=== PATIENT | female | born 2005 | race Two or more races ===

== ENCOUNTER 2024-02-16 23:14 | Emergency (ER) | payer SELFPAY ==
[~2024-02-16] VITALS: Ht 172.7 cm; Wt 65.8 kg
[2024-02-16 23:45] LABS: BASOPHILS % (AUTO) 0.8 % (0.0-2.0); EOSINOPHILS # (AUTO) 0.1 K/uL (0.0-0.7); EOSINOPHILS % (AUTO) 1.3 % (0.0-7.0); HEMATOCRIT 32.3 % (31.2-41.9); HEMOGLOBIN 10.4 g/dL (10.9-14.3); LYMPHOCYTES # (AUTO) 0.6 K/uL (0.8-4.8); LYMPHOCYTES % (AUTO) 11.2 % (20.5-51.5); MEAN CORPUSCULAR HEMOGLOBIN 20.7 uug (24.7-32.8); MEAN CORPUSCULAR HGB CONC 32 g/dL (32.3-35.6); MEAN CORPUSCULAR VOLUME 64.2 fL (75.5-95.3); MONOCYTES # (AUTO) 0.2 K/uL (0.1-1.30); MONOCYTES % (AUTO) 3.7 % (0.0-11.0); NEUTROPHILS # (AUTO) 4.6 K/uL (1.8-8.9); PLATELET COUNT (AUTO) 304 K/uL (179-408); RED BLOOD CELL COUNT(AUTO) 5.03 MIL/uL (3.63-4.92); RED CELL DISTRIBUTION WIDTH 16.6 % (12.3-17.7); WHITE BLOOD COUNT (AUTO) 5.5 K/uL (3.8-11.8)
[2024-02-17 00:04] LABS: ALANINE AMINOTRANSFERASE 15 U/L (14-59); ALBUMIN 4.3 g/dL (3.4-5.0); ALKALINE PHOSPHATASE 70 U/L (50-136); ASPARTATE AMINOTRANSFERASE 36 U/L (15-37); BILIRUBIN,DIRECT 0.2 mg/dL (0.0-0.2); BILIRUBIN,TOTAL 1.2 mg/dL (0.2-1.0); CARBON DIOXIDE 23 mmol/L (21-32); CHLORIDE 108 mmol/L (98-107); CREATININE 0.5 mg/dL (0.6-1.3); GLUCOSE 119 mg/dL (74-106); POTASSIUM 4.3 mmol/L (3.5-5.1); SODIUM SERUM 142 mmol/L (136-145); TOTAL PROTEIN, SERUM 8.1 g/dL (6.4-8.2); UREA NITROGEN, BLOOD 8 mg/dL (7-18)
[2024-02-17 00:07] LABS: AMMONIA 39 umol/L (11-32)
[2024-02-17 00:14] LABS: ACETAMINOPHEN < 10.0 ug/mL (10-30)
[2024-02-17 00:17] LABS: ETHANOL < 3 MG/DL (0-10)
[2024-02-17 00:27] LABS: *BILIRUBIN,URIN NEGATIVE (NEGATIVE); *CLARITY,URINE CLEAR (CLEAR); *COLOR,URINE YELLOW (YELLOW); *KETONES,URINE NEGATIVE (NEGATIVE); *PROTEIN,URINE TRACE (NEGATIVE); LEUKOCYTE ESTERASE ,URINE NEGATIVE (NEGATIVE); NITRITE, URINE NEGATIVE (NEGATIVE); UGLUCOSE NEGATIVE (NEGATIVE)
[2024-02-17 00:50] LABS: *BLOOD, URINE TRACE (NEGATIVE)
[2024-02-17 00:51] LABS: *URINE HCG, QUAL NEGATIVE (NEGATIVE)
[2024-02-17 00:53] LABS: *AMPHETAMINE, URINE NEGATIVE (NEGATIVE); *BARBITURATE, URINE NEGATIVE (NEGATIVE); *BENZODIAZEPINE, URINE NEGATIVE (NEGATIVE); *CANNABINOID, URINE POSITIVE (NEGATIVE); *COCCAINE, URINE NEGATIVE (NEGATIVE); *OPIATE, URINE NEGATIVE (NEGATIVE); *PHENCYCLIDINE SCREEN,URINE NEGATIVE (NEGATIVE); FENTANYL, URINE NEGATIVE (NEGATIVE)
[2024-02-17 01:27] LABS: BACTERIA,URINE FEW /HPF (NONE SEEN); SQUAMOUS EPITHELIAL CELL,UR FEW /HPF (NONE SEEN); WBC,URINE NONE SEEN /HPF (0-3)
[2024-02-17 01:28] LABS: CALCIUM OXALATE CRYSTALS,UR FEW /HPF (NONE SEEN); MUCUS,URINE FEW /LPF (0-FEW); YEAST,URINE FEW /HPF (NONE SEEN)
[2024-02-17 01:51] LABS: EOSINOPHILS % (MANUAL) 1 % (0-8); LYMPHOCYTES % (MANUAL) 10 % (20-40); MONOCYTES % (MANUAL) 2 % (2-10); NEUTROPHILS % (MANUAL) 87 % (42-75)
[2024-02-17 10:35] VITALS: BP 96/61; O2SAT 93
== END 2024-02-17 10:40 | disposition home or self-care (01) ==
LOC: EDBD 23:18 → ER 23:18
DX: F44.9 Dissociative and conversion disorder, unspecified (principal); R10.2 Pelvic and perineal pain; Z20.822 Contact with and (suspected) exposure to COVID-19
CPT/HCPCS: 36415; 70030-TC; 71045; 84484; 84703; 85025; 85730; A4606; A4663; C1758; G0480